=== PATIENT | female | born 1985 | race Caucasian/White ===

== ENCOUNTER 2024-05-01 12:28 | Emergency (ER) | payer BC ==
[~2024-05-01] VITALS: Ht 162.6 cm; Wt 95.3 kg
[2024-05-01] MEDS ORDERED: CYCL5TAB PO (14:22)
[2024-05-01] MEDS ORDERED: LIDO30AD10 TP (14:22)
[2024-05-01] MEDS ORDERED: IBUP-1955 PO (14:22)
[2024-05-01 14:38] VITALS: BP 137/89; TEMP 98.3; O2SAT 99
== END 2024-05-01 14:39 | disposition home or self-care (01) ==
LOC: ER 12:42
DX: S46.012A Strain of muscle(s) and tendon(s) of the rotator cuff of left shoulder, initial encounter (principal); F19.10 Other psychoactive substance abuse, uncomplicated; Z88.2 Allergy status to sulfonamides; X50.0XXA Overexertion from strenuous movement or load, initial encounter; Y93.89 Activity, other specified; Y92.89 Other specified places as the place of occurrence of the external cause; Y99.8 Other external cause status
CPT/HCPCS: 73030-TC